=== PATIENT | male | born 1960 | race Caucasian/White ===

== ENCOUNTER 2017-07-05 13:15 | Day surgery (SDC) | payer OTHER ==
[~2017-07-05] VITALS: Ht 165.1 cm; Wt 86.5 kg
[2017-07-05] VITALS (9 sets, daily range): BP systolic 151–185; BP diastolic 85–94; PULSE 65–84; RESP 14–20; Ht 165.1 cm; Wt 86.5 kg
[~2017-07-05 13:15] MED LIST: ASPI-664 PO; BENA40TA54 PO; GEMF600T PO; LACTATED RINGER'S 1,000 ML IV* SCH; METF-406 PO; [UNRECOGNIZED DRUG - REMARK]
[2017-07-05] MEDS ORDERED: GEMF600T60 PO (14:21)
[2017-07-05] MEDS ORDERED: METF1000 PO (14:22)
--- NOTE | 2017-07-05 14:53 | RADRPT ---
PROCEDURE: XR Chest. CLINICAL INDICATION: chest pain TECHNIQUE: Single frontal view of the chest was obtained COMPARISON: None FINDINGS: There is evidence of situs inversus. The heart is normal in size. The lungs are clear. There is no pleural effusion or pneumothorax. RPTAT: AA IMPRESSION: Evidence of situs inversus. CT correlation is recommended. .Lawson Sheridan MD, MD Date Time Electronically viewed and signed by .Lawson Sheridan MD, on 07/05/2017 14:53 .S/
[2017-07-05] MEDS ORDERED: MIDAZOLAM 1 MG/ML 2 ML INJ ONE (16:00)
[2017-07-05] MEDS ORDERED: CEFAZOLIN 1 GM INJ ONE (16:00)
[2017-07-05] MEDS ORDERED: FENTAnyl 50 MCG/ML VIAL ONE ×2 (16:00→16:36)
[2017-07-05] MEDS ORDERED: PROPOFOL 20 ML ONE (16:00)
--- NOTE | 2017-07-05 16:09 | HPN ---
Date/Time of Note Date/Time of Note DATE: 07/05/17 TIME: 16:09 Interval H&P Admission Note Pt. seen H&P reviewed: No system changes MYRNA MONTERROSO Jul 05, 2017 16:09
[2017-07-05] MEDS ORDERED: LIDOCAINE 1% (MPF) 30 ML INJ ONE (16:29)
[2017-07-05] MEDS ORDERED: BUPIVACAINE 0.5% (SDV) 30 ML INJ ONE (16:29)
[2017-07-05] MEDS ORDERED: METOCLOPRAMIDE 10 MG INJ ONE (16:30)
[2017-07-05] MEDS ORDERED: SUCCINYLCHOLINE CHLORIDE 100 MG/5 ML SYG IV ONE (16:30)
[2017-07-05] MEDS ORDERED: KETOROLAC 30 MG INJ ONE (16:30)
[2017-07-05] MEDS ORDERED: ONDANSETRON 4 MG INJ ONE (16:30)
[2017-07-05] MEDS ORDERED: DEXAMETHASONE 4 MG/ML 1 ML INJ ONE (16:30)
[2017-07-05] MEDS ORDERED: EPHEDrine SULFATE 50 MG/5 ML SYG ONE (16:56)
--- NOTE | 2017-07-05 17:09 | OPPN ---
Date/Time of Note Date/Time of Note DATE: 07/05/17 TIME: 17:08 Operative Report Preoperative Diagnosis left thumb ip joint mucous cyst, osteoarthritis Postoperative Diagnosis left thumb ip joint mucous cyst, osteoarthritis Operation/Procedure Performed excision of left thumb ip joint mucous cyst, ip joint arthrotomy, osteophyte excision Provider: MYRNA MONTERROSO Anesthesia Type: general, other Estimated blood loss: 0 - 10 ml's Transfusion Required: no Specimen: none Grafts/Implants: none Complications: no MYRNA MONTERROSO Jul 05, 2017 17:09
[2017-07-05] MEDS ORDERED: OXYCODONE/ACETAMINOPHEN (5/325) TAB PO ONE (17:30)
[2017-07-05] MEDS ORDERED: HYDROCODONE/APAP (5/325) TAB PO PRN (17:30)
[2017-07-05] MEDS ORDERED: OXYCODONE/ACETAMINOPHEN (5/325) TAB ONE (17:31)
[2017-07-05] MEDS ORDERED: hydrALAzine 20 MG INJ IV ONE (18:30)
[2017-07-05] MEDS ORDERED: hydrALAzine 20 MG INJ IV PRN (19:00)
[2017-07-05] MEDS ORDERED: EPHEDrine SULFATE 50 MG/5 ML SYG IV PRN (19:00)
[2017-07-05] MEDS ORDERED: OXYCODONE/ACETAMINOPHEN (5/325) TAB PO PRN ×2 (19:00)
[2017-07-05] MEDS ORDERED: FENTAnyl 50 MCG/ML VIAL IV PRN ×2 (19:00)
[2017-07-05] MEDS ORDERED: HYDROmorphONE (0.2 MG/ML) 10ML SYG IV PRN ×2 (19:00)
[2017-07-05] MEDS ORDERED: LABETALOL HCL 20MG INJ IV PRN (19:00)
--- NOTE | 2017-07-05 21:20 | OPR ---
DATE OF OPERATION: 07/05/2017 SURGEON: Dm Knapp MD ANESTHESIA: General plus local. PREOPERATIVE DIAGNOSIS: 1. Left thumb interphalangeal joint mucous cyst. 2. Left thumb interphalangeal joint osteoarthritis. POSTOPERATIVE DIAGNOSIS: 1. Left thumb interphalangeal joint mucous cyst. 2. Left thumb interphalangeal joint osteoarthritis. OPERATION PERFORMED: 1. Excision of left thumb interphalangeal joint mucous cyst. 2. Left thumb interphalangeal joint arthrotomy, with osteophyte excision. OPERATIVE FINDINGS AT SURGERY: Large 1-cm mucous cyst at the dorsum of the left thumb IP joint, with osteophytes and osteoarthritis. INDICATION FOR PROCEDURE: A 56-year-old male with longstanding left thumb pain and swelling. He had an enlarging mucous cyst at the dorsum of his left thumb, and options were discussed, and he elected to proceed with surgical excision, understanding the risks and benefits. OPERATIVE PROCEDURE: Patient was seen in the preoperative area, and all further questions were answered. Again, he gave informed consent, understanding the risks and benefits. He was taken to the operative suite and placed in a supine position. He was placed under general anesthesia, and 2 g Ancef IV was given. Tourniquet placed on the left upper extremity, and the left upper extremity was prepped with ChloraPrep stick and draped in usual sterile fashion. Esmarch bandage was used to exsanguinate the extremity, and tourniquet inflated to 250 mmHg. A 16-cc volume of 0.5 percent Marcaine was injected at the base of the thumb, both volarly and dorsally to provide a digital nerve block for more adequate anesthesia. An H-type incision over the dorsum of the left thumb IP joint was utilized, with sharp dissection carried down through skin and subcutaneous tissue. Full- thickness skin flaps were raised both proximally and dorsally above the paratenon layer, with care taken to make full-thickness flaps deep to the dermis. The mucous cyst was identified and was excised and was found to be leading down into the joint itself. The entirety of the mucous cyst was excised, and a radial and ulnar joint arthrotomy was made longitudinally, with care taken to protect the extensor tendon. Osteophytes were resected on both the radial and ulnar aspects of the joint. An adequate joint arthrotomy was made to visualize the joint surfaces and do an adequate bony resection. Wound was copiously irrigated. Skin closed with 5-0 nylon. Xeroform placed over the wound, followed by sterile gauze, Coban, and a finger splint. Tourniquet deflated after 27 minutes, and patient was awakened from anesthesia. He was to the postoperative suite in stable condition and tolerated the procedure well, without complications. SPECIMENS: None. ESTIMATED BLOOD LOSS: 5 cc. SPONGE, INSTRUMENT, NEEDLE COUNTS: Correct. TOURNIQUET TIME: 27 minutes. CONDITION ON DISCHARGE: Stable. Dictated By: Dm Knapp MD /[email or web address] /Document#: [id number] [facility]
== END 2017-07-05 18:59 | disposition home or self-care (01) ==
LOC: SDS 13:15
PROVIDERS: ATTEND Orthopaedic Surgery Hand Surgery
DX: M19.042 Primary osteoarthritis, left hand (principal); M25.842 Other specified joint disorders, left hand; I10 Essential (primary) hypertension; E11.9 Type 2 diabetes mellitus without complications; E78.5 Hyperlipidemia, unspecified; E66.9 Obesity, unspecified; Z68.31 Body mass index [BMI] 31.0-31.9, adult
CPT/HCPCS: 11421; 71010; 82962; J0360; J0690; J1100; J1885; J2250; J2405; J2765; J3010; Z7512; Z7610; J7999